=== PATIENT | female | born 1965 | race Caucasian/White ===

== ENCOUNTER 2021-04-07 18:36 | Emergency (ER) | payer MEDICARE, MEDICAID, SELFPAY ==
[2021-04-07 18:36] VITALS: BP 184/98; PULSE 90; RESP 15; TEMP 36.8; O2SAT 98; BMI 20.2
[2021-04-07 18:50] VITALS: BP 00/00; PULSE 0; RESP 16; TEMP -17.7; TEMP 0
--- NOTE | 2021-04-07 18:51 | HMH.EDOD ---
ED Disposition Clinical Impression: Drug overdose Qualifiers: Encounter type: initial encounter Injury intent: accidental or unintentional Qualified Code(s): T50.901A - Poisoning by unspecified drugs, medicaments and biological substances, accidental (unintentional), initial encounter Disposition: Left Against Medical Advice Condition on Discharge: Fair Instructions: DI for Drug Overdose in Adults - Critical Care Critical Care Time: No Attestation: On , the high probability of a clinically significant, sudden or life threatening deterioration of the following system(s) required my full and direct attention, intervention and personal management. The time I documented below is in addition to time spent performing reported procedures but includes the following listed in this critical care notation. Medical Decision Making - Medical Records Medical records reviewed: Yes: I reviewed the patient's medical records. - Tom Inquiry Pt receiving controlled substance: No Vital Signs: 04/07/21 18:36 Temperature 98.2 F Temperature Source Oral Pulse Rate [Right] 90 Respiratory Rate 15 Blood Pressure [Right Arm] 184/98 H Blood Pressure Mean [Right Arm] 126 02 Sat by Pulse Oximetry 98 Oxygen Delivery Method Room Air Orders (Tests/Meds): ORDERS Category Date Time Status XR chest portable Stat Exams 04/07/21 18:42 Ordered - Reevaluation(s) Time: 18:53 Reevaluation #1: On reevaluation, patient states that she does not want to stay anymore. I did explain to her that leaving prior to completing her medical treatment could result in catastrophic outcome including . Patient is alert and appropriate. Full decision-making capability. Patient is leaving without completing treatment. Medical Decision Narrative: 55-year-old female presented to the emergency department with opiate abuse. Patient is alert appropriate at this time. She is declining rehab services. Work-up initiated. Overdose HPI - General Chief Complaint: Overdose Stated Complaint: Overdose Time Seen by Provider: 04/07/21 18:40 Mode of Arrival: Family Vehicle Limitations: No Limitations Description of Symptoms (Recalled from ER Triage Doc. by RN): EMS REPORTS THEY WERE CALLED OUT FOR UNRESPONSIVE PATIENT THAT WAS DROPPED OFF AT [employer]. EMS REPORTS THEY GAVE 2MG OF NARCAN AND PATIENT BECAME ALERT AND OREINTED. PT ADMITS TO SNORTING HEROINE TODAY. PT DENIES ANY N/V/. PT DENIES ANY PAIN. - History of Present Illness HPI Narrative: 55-year-old female presented to the emergency department after heroin overdose. Patient longstanding history of intranasal opiate use. Patient states that she snorted some heroin today. States that with accidental overdose. Ministered Narcan a brisk response. Asymptomatic at this time. Denies chest pain or shortness of breath. No abdominal pain or blood. No headache or change in vision. No focal weakness. - Related Data Allergies Allergy/AdvReac Type Severity Reaction Status Date / Time No Known Allergies Allergy Verified 04/07/21 18:49 [facility] History - Hepatitis A Screen Drug use history?: Yes High risk sexual behaviors?: No History of sexually transmitted infection?: No Currently employed?: No Childcare worker?: No Do you have indoor plumbing?: Yes Do you have electricity?: Yes Attestation statement:: This patient has been screened for Hepatitis A risk factors. I have reviewed the patient's past medical history: Yes ROS Obtained: Yes All systems reviewed & no additional complaints - Constitutional Constitutional: Denies chills, Denies fever(s) - Cardiovascular Cardiovascular: Denies chest pain - Respiratory Respiratory: Denies dyspnea - Musculoskeletal Musculoskeletal: Denies joint pain - Integumentary/Breasts Skin/Breast: Denies rash - Neurologic Neurologic: Denies headache(s) Physical Exam - General General appearance: alert, in no apparent distress
--- NOTE | 2021-04-07 18:54 | PC.NURSE ---
PATIENT LEFT AMA AND REFUSED TO SIGN FORM. MADE AWARE
--- NOTE | 2021-04-07 18:54 | PC.NURSE ---
Pt walked out of room stating she was leaving. Told pt she couldn't leave with an IV in her arm. She let me take her IV out. Pt signed AMA form.
== END 2021-04-07 18:54 | disposition left against medical advice (07) ==
PROVIDERS: Emergency Provider Emergency Medicine
DX: T40.1X1A Poisoning by heroin, accidental (unintentional), initial encounter (principal); Y92.009 Unspecified place in unspecified non-institutional (private) residence as the place of occurrence of the external cause
CPT/HCPCS: 99281